=== PATIENT | male | born 1980 | race Caucasian/White ===

== ENCOUNTER 2019-06-13 13:33 | Emergency (ER) | payer OTHER ==
[~2019-06-13] VITALS: Ht 170.2 cm; Wt 90.7 kg
[2019-06-13 13:46] VITALS: Ht 170.2 cm; Wt 90.7 kg
[2019-06-13 14:23] LABS: BASOPHIL % 0.3 % (0-2); PLATELET COUNT 247 x10^3mcL (130-400); RED CELL DISTRIBUTION WIDTH 12.4 % (11.5-14.5)
[2019-06-13 14:32] LABS: CALCIUM 8.8 mg/dL (8.5-10.1); CARBON DIOXIDE 29.6 mmol/L (21-32); CHLORIDE SERUM 98 mmol/L (98-107); GFR1 > 60 mL/min; GLUCOSE SERUM 91 mg/dL (74-106); POTASSIUM SERUM 3.9 mmol/L (3.5-5.1); SODIUM SERUM 132 mmol/L (136-145)
[2019-06-13 14:37] LABS: ALBUMIN 3.9 g/dL (3.4-5.0); ALKALINE PHOSPHATASE 66 U/L (46-116); ALT/SGPT 61 U/L (16-63); AST/SGOT 31 U/L (15-37); BILIRUBIN TOTAL 0.9 mg/dL (0.20-1.00); TOTAL PROTEIN, SERUM 7.4 g/dL (6.4-8.2)
[2019-06-13 16:21] VITALS: BP 110/67
== END 2019-06-13 16:00 | disposition home or self-care (01) ==
LOC: ED 13:33
PROVIDERS: Emergency Medicine
DX: R55 Syncope and collapse (principal); E86.0 Dehydration